=== PATIENT | male | born 1940 | race Caucasian/White ===

== ENCOUNTER → 2022-09-09 | Emergency (ER) | payer BC ==
[~2022-09-09] VITALS: Ht 180.3 cm; Wt 72.6 kg
[~2022-09-09] MED LIST: ACET-2634 PO; ACETAMINOPHEN 325 MG TABLET PO ONE; METH-634 PO
[2022-09-09 21:40] VITALS: BP_SYST 159
--- NOTE | 2022-09-09 21:40 | NUR ---
Triaged and placed back in the waiting room. VSS, no acute respiratory distress noted at this time. Instructed to notify ED staff for any changes in condition or worsening of symptoms. Patient verbalized understanding.
--- NOTE | 2022-09-09 22:39 | NUR ---
Patient placed in ER bed 5 for evaluation. Report given to CHANELL IRENE for continuity of care. Bed in lowest position with side rails up. Instructed patient to notify ED staff for any changes in condition or worsening of symptoms. Patient verbalized understanding.
--- NOTE | 2022-09-09 22:53 | NUR ---
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
--- NOTE | 2022-09-09 23:32 | NUR ---
Dr. Vera at bedside examining the patient.
--- NOTE | 2022-09-09 23:58 | NUR ---
PATIENT INSTRUCTED TO FOLLOW UP WITH ORTHOPEDIC SURGEON, RIGHT ARM SLING IN PLACE, ICE PACKS GIVEN, PATIENT ABLE TO AMBULATE WITH STEADY GAIT, ASSISTED BY DAUGHTER, RX SENT TO PHARMACY, NO DISTRESS NOTED
[2022-09-10] VITALS: BP_SYST 132
== END | disposition home or self-care (01) ==
LOC: SED 21:16
DX: S43.101A Unspecified dislocation of right acromioclavicular joint, initial encounter (principal); Z79.899 Other long term (current) drug therapy; W01.0XXA Fall on same level from slipping, tripping and stumbling without subsequent striking against object, initial encounter; Y93.89 Activity, other specified; Y92.89 Other specified places as the place of occurrence of the external cause; Y99.8 Other external cause status
CPT/HCPCS: 73030; 99283